=== PATIENT | female | born 1980 | race Two or more races ===

== ENCOUNTER → 2016-06-26 | Outpatient (CLI) | payer OTHER ==
[2014-12-24 13:19] VITALS: BP 114/62
[~2016-06-26] MED LIST: ALBU8.5H6
--- NOTE | 2016-06-26 10:11 | RAD ---
Exam performed: 2 views right knee. Clinical indication: Right knee pain, no known injury Date of Service: 06/26/16 Comparison:No priors Findings: AP and lateral radiographs of the knee reveal the osseous structures to be intact and well aligned. The joint space is well-preserved. The articular margins are smooth. Evidence of calcific loose body or joint effusion is absent. Impression: No acute abnormality seen in the right knee.
== END | disposition home or self-care (01) ==
LOC: RAD 09:33
PROVIDERS: ATTEND Family Medicine
DX: M25.561 Pain in right knee (principal)
CPT/HCPCS: 73560

== ENCOUNTER 2017-05-09 14:28 | Emergency (ER) | payer OTHER ==
[2017-05-09 15:13] LABS: INFLUENZA A PATIENT NEGATIVE (NEGATIVE); INFLUENZA B PATIENT NEGATIVE (NEGATIVE); OBC FLU VALID
[2017-05-09] MEDS: IPRATRPIUM/ALBUTEROL 0.5/2.5MG 3 ML NEBU. NEB (15:25)
[2017-05-09] MEDS: predniSONE 10 MG TABLET PO (15:50)
[2017-05-10 09:01] LABS: NEGATIVE OBC STREP NEG; POSITIVE OBC STREP POS
== END 2017-05-09 15:50 | disposition home or self-care (01) ==
LOC: ER 15:50
DX: J40 Bronchitis, not specified as acute or chronic (principal); J45.909 Unspecified asthma, uncomplicated; Z88.5 Allergy status to narcotic agent
CPT/HCPCS: 87804; 87804-59; 87880; 94640; 99284; J7512; J7620

== ENCOUNTER → 2017-07-14 | Outpatient (CLI) | payer OTHER ==
[2017-07-14] MEDS: SINCALIDE 2.1 MCG in IV NORMAL SALINE 50ML 30 ML IV (09:52)
== END | disposition home or self-care (01) ==
LOC: US 07:09
DX: R16.0 Hepatomegaly, not elsewhere classified (principal)
CPT/HCPCS: 76705; 78226; 96374; 96375; A9537; J2805

== ENCOUNTER → 2017-07-27 | Outpatient (CLI) | payer OTHER ==
[2017-07-27 14:43] LABS: ADD MAN DIFF? NO
[2017-07-27 14:45] LABS: BASO # 0.1 x10^3/uL (0.0-0.2); BASO % 1 % (0-3); EOS # 0.3 x10^3/uL (0.0-0.7); EOS % 4 % (0-3); HEMATOCRIT 39.5 % (36.0-47.0); HEMOGLOBIN 13.6 g/dL (12.0-15.5); LYMPH # 2.7 x10^3/uL (1.0-4.8); LYMPH % 35 % (24-48); MEAN CORPUSCULAR HEMOGLOBIN 28 pg (25-35); MEAN CORPUSCULAR HGB CONC 34 g/dL (31-37); MEAN CORPUSCULAR VOLUME 81 fL (79-100); MONO # 0.4 x10^3/uL (0.0-1.1); MONO % 5 % (0-9); NEUT # 4.3 x10^3uL (1.8-7.7); NEUT % 56 % (31-73); PLATELET COUNT 243 x10^3/uL (140-400); RED BLOOD COUNT 4.87 x10^6/uL (3.50-5.40); RED CELL DISTRIBUTION WIDTH 15.3 % (11.5-14.5); WHITE BLOOD COUNT 7.8 x10^3/uL (4.0-11.0)
[2017-07-27 15:13] LABS: ALBUMIN 3.4 g/dL (3.4-5.0); ANION GAP 6 (6-14); BLOOD UREA NITROGEN 17 mg/dL (7-20); CALCIUM 8.2 mg/dL (8.5-10.1); CARBON DIOXIDE 27 mmol/L (21-32); CHLORIDE 105 mmol/L (98-107); CREATININE 0.7 mg/dL (0.6-1.0); GFR 95.2; GLUCOSE 98 mg/dL (70-99); SODIUM 138 mmol/L (136-145); TOTAL BILIRUBIN 0.3 mg/dL (0.2-1.0)
== END | disposition home or self-care (01) ==
LOC: SURGPAT 13:41
DX: Z01.818 Encounter for other preprocedural examination (principal)
CPT/HCPCS: 36415; 80048; 82040; 82247; 85025

== ENCOUNTER 2017-08-02 06:43 | Day surgery (SDC) | payer OTHER ==
[2017-08-02] MEDS ORDERED: GLUCAGON,HUMAN RECOMBINANT 1 MG/ML VIAL. (06:51)
[2017-08-02] MEDS ORDERED: SURGICEL HEMOSTAT 4X8 EACH. (06:51)
[2017-08-02] MEDS ORDERED: LIDOCAINE 1% PF 2 ML VIAL. ID (07:00)
[2017-08-02] MEDS ORDERED: fentaNYL PF VIAL 100 MCG/2 ML VIAL IV (07:00)
[2017-08-02] MEDS ORDERED: ONDANSETRON PF 4 MG/2 ML VIAL. IV (07:00)
[2017-08-02 07:05] LABS: NEG OBC UR NEG; POS OBC UR POS; U PREG PATIENT NEGATIVE (NEG)
[2017-08-02] MEDS ORDERED: fentaNYL PF VIAL 250 MCG/5 ML VIAL (07:05)
[2017-08-02] MEDS ORDERED: ROCURONIUM 50 MG/5 ML VIAL. (07:05)
[2017-08-02] MEDS ORDERED: MIDAZOLAM HCL/PF 2 MG/2 ML VIAL. (07:05)
[2017-08-02] MEDS ORDERED: LIDOCAINE 1% PF 5 ML VIAL. (07:05)
[2017-08-02] MEDS ORDERED: PROPOFOL 20 ML IV (07:05)
[2017-08-02] MEDS: IV RINGERS,LACTATED 1000ML 1,000 ML IV ×2 (07:14→10:41)
[2017-08-02] MEDS ORDERED: ceFAZolin 2GM PREMIX 2 GM/50 ML BAG IV (08:00)
[2017-08-02] MEDS: BUPIVACAINE-EPI 0.25%-1:200000 50 ML VIAL. (08:29)
[2017-08-02] MEDS: IOHEXOL 300 MG/ML 100ML VIAL. (08:29)
[2017-08-02] MEDS ORDERED: SEVOFLURANE 61 TO 120 MINUTES. IH (08:50)
[2017-08-02] MEDS ORDERED: DEXAMETHASONE SOD PHOS 20 MG/5 ML VIAL. (08:50)
[2017-08-02] MEDS ORDERED: ONDANSETRON PF 4 MG/2 ML VIAL. (08:50)
[2017-08-02] MEDS ORDERED: NEOSTIGMINE METHYLSULFATE 5 MG/5 ML SYRINGE. (08:54)
[2017-08-02] MEDS ORDERED: GLYCOPYRROLATE 1 MG/5 ML VIAL. (08:54)
[2017-08-02] MEDS ORDERED: KETOROLAC 30 MG/ML INJ FOR OR. INJ (08:55)
[2017-08-02] MEDS: fentaNYL PF VIAL 100 MCG/2 ML VIAL IV ×4 (09:42→10:26)
[2017-08-02] MEDS ORDERED: MEPERIDINE PF 25 MG/ML VIAL. IV (09:45)
[2017-08-02] MEDS: diphenhydrAMINE 50 MG/ML VIAL IV (10:37)
[2017-08-02] MEDS: traMADol 50 MG TABLET PO (10:55)
[2017-08-02] MEDS: PROCHLORPERAZINE 10 MG/2 ML VIAL. IV (11:02)
== END 2017-08-02 12:12 | disposition home or self-care (01) ==
LOC: SURG 06:43
DX: K81.1 Chronic cholecystitis (principal); J45.30 Mild persistent asthma, uncomplicated; Z88.5 Allergy status to narcotic agent; E66.09 Other obesity due to excess calories; Z68.41 Body mass index [BMI] 40.0-44.9, adult; K21.9 Gastro-esophageal reflux disease without esophagitis; Z98.51 Tubal ligation status; Z87.442 Personal history of urinary calculi; M19.90 Unspecified osteoarthritis, unspecified site; Z79.899 Other long term (current) drug therapy; E78.5 Hyperlipidemia, unspecified; M51.36 Other intervertebral disc degeneration, lumbar region; Z98.890 Other specified postprocedural states; Z83.3 Family history of diabetes mellitus; Z87.891 Personal history of nicotine dependence; Z72.89 Other problems related to lifestyle
CPT/HCPCS: 47563; 74300; 81025; 88304; A7015; J0690; J0780; J1100; J1200; J1610; J1885; J2250; J2405; J2704; J2710; J3010; J3490; J7030; J7120; Q9967

== ENCOUNTER 2018-01-29 20:18 | Emergency (ER) | payer OTHER ==
[~2018-01-29] VITALS: Ht 154.9 cm; Wt 108.4 kg
[~2018-01-29 20:18] MED LIST changes: +AZIT250T PO; +IBUP-1060 PO; +OMEP20CA9 PO; +OMEP40CA5 PO; +PRED50TA PO; +PROAIR HFA8.5 GM INH; +SULF1TAB24 PO; +TRAM50TA PO
[2018-01-29 20:26] VITALS: BP 124/68
[2018-01-29] MEDS ORDERED: IPRATRPIUM/ALBUTEROL 0.5/2.5MG 3 ML NEBU. NEB ONE (20:45)
--- NOTE | 2018-01-29 20:53 | RAD ---
Chest radiograph 01/29/2018 8:36 PM INDICATION: Productive cough and sore throat COMPARISON: None available TECHNIQUE: Frontal and lateral views of the chest are provided. FINDINGS: The cardiomediastinal silhouette is within normal limits. There are no pleural effusions. There is no pulmonary vascular congestion. There is no pneumothorax. The lungs are clear. No significant osseous abnormality is identified. IMPRESSION: No acute cardiopulmonary process. Electronically signed by: Rocio Santiago MD (01/29/2018 8:49 PM) [facility]
[2018-01-29] MEDS ORDERED: BENZ100C PO (21:11)
[2018-01-29] MEDS ORDERED: METH4TAB2 PO (21:11)
[2018-01-29] MEDS ORDERED: AMOX1TAB61 PO (21:11)
--- NOTE | 2018-01-29 21:12 | PHYS DOC ---
Past Medical History Past Medical History: Asthma, Other Additional Past Medical Histor: HEMMORHOIDS Past Surgical History: No Surgical History, Alcohol Use: None Drug Use: None Adult General Chief Complaint Chief Complaint: SORE THROAT HPI HPI Patient is a 37 year old F who presents with cough, congestion, sore throat, R ear pain and hoarse voice for 3 days. She does have a history of asthma and uses inhalers at home. LMP was 01/03/18 and she has the Essure device. Review of Systems Review of Systems Constitutional: Reports chills Eyes: Denies change in visual acuity, redness, or eye pain HENT: Reports nasal discharge and sore throat. Reports hoarse voice Respiratory: Reports cough and wheezing Cardiovascular: Denies chest pain GI: Denies abdominal pain, nausea, vomiting, bloody stools or diarrhea : Denies dysuria or hematuria Musculoskeletal: Denies back pain or joint pain Integument: Denies rash or skin lesions Neurologic: Denies headache, focal weakness or sensory changes All other systems were reviewed and found to be within normal limits, except as documented in this note. Current Medications Current Medications Current Medications Medications (Trade) Dose Ordered Sig/Radha Start Time Stop Time Status Last Admin Dose Admin Albuterol/ Ipratropium (Duoneb) 3 ml 1X ONCE 01/29/18 20:45 01/29/18 20:46 DC 01/29/18 20:58 3 ML Allergies Allergies Allergies Coded Allergies Type Severity Reaction Last Updated Verified morphine Allergy Intermediate Hives 08/02/17 Yes Physical Exam Physical Exam Constitutional: Well developed, well nourished, no acute distress, non-toxic appearance. HENT: Normocephalic, atraumatic, R tempanic membrane erythema, oropharynx erythema Eyes: PERRLA, EOMI, conjunctiva normal, no discharge. Neck: Normal range of motion, no tenderness, supple, no stridor. Cardiovascular:Heart rate regular rhythm, no murmur Lungs & Thorax: Bilateral wheezing, mild, scattered Abdomen: Bowel sounds normal, soft, no tenderness, no masses, no pulsatile masses. Skin: Warm, dry, no erythema, no rash. Back: No tenderness, no CVA tenderness. Extremities: No tenderness, no cyanosis, no clubbing, ROM intact, no edema. Neurologic: Alert and oriented X 3, normal motor function, normal sensory function, no focal deficits noted. Psychologic: Affect normal, judgement normal, mood normal. Current Patient Data Vital Signs Vital Signs Date Time Temp Pulse Resp B/P (MAP) Pulse Ox O2 Delivery O2 Flow Rate FiO2 01/29/18 20:59 98 Room Air 01/29/18 20:26 98.4 76 22 124/68 (86) 98.4 EKG EKG [] Radiology/Procedures Radiology/Procedures PROCEDURE: CHEST PA & LATERAL Chest radiograph 01/29/2018 8:36 PM INDICATION: Productive cough and sore throat COMPARISON: None available TECHNIQUE: Frontal and lateral views of the chest are provided. FINDINGS: The cardiomediastinal silhouette is within normal limits. There are no pleural effusions. There is no pulmonary vascular congestion. There is no pneumothorax. The lungs are clear. No significant osseous abnormality is identified. IMPRESSION: No acute cardiopulmonary process. Electronically signed by: Rocio Santiago MD (01/29/2018 8:49 PM) [facility] Course & Med Decision Making Course & Med Decision Making Pertinent Labs and Imaging studies reviewed. (See chart for details) CXR negative, rapid strep negative Discussed rest, fluids and will cover with abx for ear infection. Medrol dose rivera and Tessalon Perrles for cough and wheezing. Pt to f/u with PCP and return if symptoms worsen at anytime. Dragon Disclaimer Dragon Disclaimer This electronic medical record was generated, in whole or in part, using a voice recognition dictation system. Departure Departure Impression: Primary Impression: Otitis media Additional Impressions: Pharyngitis Bronchitis Disposition: 01 HOME, SELF-CARE Condition: STABLE Referrals: JOSH SNEED MD (PCP) Patient Instructions: Acute Bronchitis, [id number], Otitis Media, Adult, Viral and Bacterial Pharyngitis, [id number] Scripts Benzonatate (TESSALON PERLE) 100 Mg Capsule 100 MG PO TID PRN for COUGH for 5 Days, #15 CAP Prov: HECTOR GUEVARA 01/29/18 Methylprednisolone (MEDROL) 4 Mg Tab.ds.pk 1 PKG PO UD, #1 PKG Prov: HECTOR GUEVARA 01/29/18 Amoxicillin/Potassium Clav (AUGMENTIN 875-125 TABLET) 1 Each Tablet 1 TAB PO BID, #20 TAB Prov: HECTOR GUEVARA 01/29/18 Attending Signature Attending Signature I have reviewed the PA/LAUNDERETTE ATTENDANT's note and plan of care. I was available for consultation as needed during the patient's visit in the emergency department. I agree with the clinical impression, plan, and disposition. Problem Qualifiers HECTOR GUEVARA Jan 29, 2018 21:12 KELSEY ALEJO DO Jan 29, 2018 23:48
== END 2018-01-29 21:19 | disposition home or self-care (01) ==
LOC: ER 20:18
DX: J40 Bronchitis, not specified as acute or chronic (principal); J02.9 Acute pharyngitis, unspecified; H66.91 Otitis media, unspecified, right ear; J45.909 Unspecified asthma, uncomplicated; Z88.5 Allergy status to narcotic agent
CPT/HCPCS: 71046; 87070; 87880; 94640; 99284; J7620

== ENCOUNTER 2018-04-03 01:44 | Emergency (ER) | payer SELFPAY ==
[~2018-04-03] VITALS: Ht 154.9 cm; Wt 107.5 kg
[~2018-04-03 01:44] MED LIST changes: +ALBU2.5V8 INH; +AMOX1TAB61 PO; +BENZ100C PO; +METH4TAB2 PO; -PROAIR HFA8.5 GM INH
[2018-04-03] MEDS ORDERED: ONDANSETRON ODT 4 MG TAB.RAPDIS. PO ONE (03:30)
[2018-04-03] MEDS ORDERED: oxyCODONE/APAP 10/325 1 TAB TABLET PO ONE (03:30)
--- NOTE | 2018-04-03 03:53 | RAD ---
INDICATION: abdominal pain, CONSTIPATION COMPARISON: Chest x-ray January 2018 IMPRESSION: Abdomen: 4 views of chest and abdomen obtained. No focal airspace consolidation to suggest pneumonia. Cardiac silhouette similar to prior. Essure device seen bilateral pelvis. Surgical clips right upper quadrant of abdomen. Air scattered throughout large and small bowel in a nonspecific but not grossly obstructive pattern. Electronically signed by: Nitish Henriquez MD (04/03/2018 3:50 AM) [facility]
[2018-04-03 04:08] VITALS: BP 107/54
--- NOTE | 2018-04-03 05:53 | PHYS DOC ---
Past Medical History Past Medical History: Asthma, GERD, Other Additional Past Medical Histor: h pyloric, back pain. migraines. Past Surgical History: Cholecystectomy Alcohol Use: None Drug Use: None Adult General Chief Complaint Chief Complaint: CONSTIPATION HPI HPI Patient is a 37 year old suspect female with history of constipation preference with diffuse abdominal cramping, last bowel movement was several hours prior to ED arrival. No vomiting diarrhea. No urinary frequency urgency or burning. Blood in stool, hematuria, flank pain or history of kidney stones. Currently on menstraul period. [] Review of Systems Review of Systems ROS as per HPI All other systems were reviewed and found to be within normal limits, except as documented in this note. Current Medications Current Medications Current Medications Medications (Trade) Dose Ordered Sig/Radha Start Time Stop Time Status Last Admin Dose Admin Ondansetron HCl (Zofran Odt) 4 mg 1X ONCE 04/03/18 03:30 04/03/18 03:31 DC 04/03/18 03:05 4 MG Oxycodone/ Acetaminophen (Percocet 10/325) 1 tab 1X ONCE 04/03/18 03:30 04/03/18 03:31 DC 04/03/18 03:06 1 TAB Allergies Allergies Allergies Coded Allergies Type Severity Reaction Last Updated Verified morphine Allergy Intermediate Hives 08/02/17 Yes Physical Exam Physical Exam Constitutional: Well developed, well nourished, no acute distress, non-toxic appearance. [] HENT: Normocephalic, atraumatic, bilateral external ears normal, oropharynx moist, no oral exudates, nose normal. [] Eyes: PERRLA, EOMI, conjunctiva normal, no discharge. [] Neck: Normal range of motion. [] Cardiovascular:Heart rate regular rhythm, no murmur [] Lungs & Thorax: Bilateral breath sounds clear to auscultation [] Abdomen: Bowel sounds normal, soft, no tenderness. [] Skin: Warm, dry, no erythema, no rash. [] Back: No tenderness. [] Extremities: No tenderness. [] Neurologic: Alert and oriented X 3, normal motor function, normal sensory function, no focal deficits noted. [] Psychologic: Affect normal, judgement normal, mood normal. [] Current Patient Data Vital Signs Vital Signs Date Time Temp Pulse Resp B/P (MAP) Pulse Ox O2 Delivery O2 Flow Rate FiO2 04/03/18 04:08 74 16 107/54 (71) 04/03/18 03:06 Room Air 04/03/18 02:14 98.3 98.3 Lab Values Laboratory Tests Test 04/03/18 02:56 POC Urine HCG, Qualitative Hcg negative (Negative) EKG EKG [] Radiology/Procedures Radiology/Procedures [Acute abdominal series: No evidence of bowel obstruction per radiology report] Course & Med Decision Making Course & Med Decision Making Pertinent Labs and Imaging studies reviewed. (See chart for details) [Pain free with tx. Will tx supportively.] Dragon Disclaimer Dragon Disclaimer This electronic medical record was generated, in whole or in part, using a voice recognition dictation system. Departure Departure Impression: Primary Impression: Constipation Additional Impression: Abdominal pain Disposition: 01 HOME, SELF-CARE Condition: GOOD Patient Instructions: Abdominal Pain, Constipation, Adult, [id number] Additional Instructions: You were evaluated emergency department for abdominal pain. X-ray was performed and is consistent with constipation. Use a fleets enema and drink 1-2 bottles of Magnesium Citrate every 12 hours for 2 days, increase fluids and fiber intake. Follow-up with your PCP in the next 1-2 days for reevaluation. Problem Qualifiers TIEN GIBSON DO Apr 03, 2018 05:53
== END 2018-04-03 04:22 | disposition home or self-care (01) ==
LOC: ER 01:44
DX: K59.00 Constipation, unspecified (principal); K92.1 Melena; R31.9 Hematuria, unspecified; K21.9 Gastro-esophageal reflux disease without esophagitis; J45.909 Unspecified asthma, uncomplicated; G43.909 Migraine, unspecified, not intractable, without status migrainosus; Z88.5 Allergy status to narcotic agent; Z90.49 Acquired absence of other specified parts of digestive tract
CPT/HCPCS: 74022; 81025; 99283; Q0162

== ENCOUNTER 2018-10-10 23:27 | Emergency (ER) | payer OTHER ==
[~2018-10-10] VITALS: Ht 154.9 cm; Wt 84.8 kg
[~2018-10-10 23:27] MED LIST changes: +OMEP20CA10 PO; -OMEP20CA9 PO
[2018-10-10 23:30] VITALS: BP 150/81
[2018-10-10] MEDS ORDERED: FLUT9.9S NS (23:52)
[2018-10-10] MEDS ORDERED: PRED20TA PO (23:52)
[2018-10-10] MEDS ORDERED: LORA1TAB47 PO (23:52)
--- NOTE | 2018-10-10 23:52 | PHYS DOC ---
Past Medical History Past Medical History: Asthma, GERD, Other Additional Past Medical Histor: h pyloric, back pain. migraines. Past Surgical History: Cholecystectomy Alcohol Use: None Drug Use: None Adult General Chief Complaint Chief Complaint: Congestion HPI HPI Patient is a 38-year-old female who presents with nasal congestion, runny nose and a dry cough. She's been using her inhaler without significant relief. She denies any fever chills or sweats. She denies any nausea or vomiting. She does have a scratchy throat. She's been eating and drinking normally. She has not taken any antihistamines or nasal spray.[] Review of Systems Review of Systems Constitutional: Denies fever or chills [] Eyes: Denies change in visual acuity, redness, or eye pain [] HENT: Reports nasal congestion and a scratchy throat[] Respiratory: Reports a dry cough[] Cardiovascular: No additional information not addressed in HPI [] GI: Denies abdominal pain, nausea, vomiting, bloody stools or diarrhea [] : Denies dysuria or hematuria [] Musculoskeletal: Denies back pain or joint pain [] Integument: Denies rash or skin lesions [] Neurologic: Denies headache, focal weakness or sensory changes [] Endocrine: Denies polyuria or polydipsia [] All other systems were reviewed and found to be within normal limits, except as documented in this note. Current Medications Current Medications Current Medications Medications (Trade) Dose Ordered Sig/Radha Start Time Stop Time Status Last Admin Dose Admin Prednisone (Prednisone) 60 mg 1X ONCE 10/10/18 23:45 10/10/18 23:46 UNV Allergies Allergies Allergies Coded Allergies Type Severity Reaction Last Updated Verified morphine Allergy Intermediate Hives 08/02/17 Yes Physical Exam Physical Exam Constitutional: Well developed, well nourished, no acute distress, non-toxic appearance. [] HENT: Normocephalic, atraumatic, bilateral external ears normal, oropharynx moist, no oral exudates, swollen nasal turbinates with clear rhinorrhea. [] Eyes: PERRLA, EOMI, conjunctiva normal, no discharge. [] Neck: Normal range of motion, no tenderness, supple, no stridor. [] Cardiovascular:Heart rate regular rhythm, no murmur [] Lungs & Thorax: Bilateral breath sounds clear to auscultation [] Abdomen: Bowel sounds normal, soft, no tenderness, no masses, no pulsatile masses. [] Skin: Warm, dry, no erythema, no rash. [] Back: No tenderness, no CVA tenderness. [] Extremities: No tenderness, no cyanosis, no clubbing, ROM intact, no edema. [] Neurologic: Alert and oriented X 3, normal motor function, normal sensory function, no focal deficits noted. [] Psychologic: Affect normal, judgement normal, mood normal. [] EKG EKG [] Radiology/Procedures Radiology/Procedures [] Course & Med Decision Making Course & Med Decision Making Pertinent Labs and Imaging studies reviewed. (See chart for details) [] Dragon Disclaimer Dragon Disclaimer This electronic medical record was generated, in whole or in part, using a voice recognition dictation system. Departure Departure Impression: Primary Impression: Viral upper respiratory infection Disposition: HOME, SELF-CARE Condition: STABLE Referrals: JOSH SNEED MD (PCP) Patient Instructions: Allergic Rhinitis, Viral Infections, Viral Syndrome Additional Instructions: Use Flonase and Claritin-D as discussed. I have prescribed U prednisone to take as well. Return to the emergency department with any new or concerning symptoms Scripts Prednisone (PREDNISONE) 20 Mg Tablet 3 TAB PO DAILY PRN for COUGH for 5 Days, #15 TAB Prov: MILAGROS BLANCA DO 10/10/18 Loratadine/Pseudoephedrine (CLARITIN-D 12 HOUR TABLET) 1 Each Tab.er.12h 1 TAB PO BID, #90 TAB Prov: MILAGROS BLANCA DO 10/10/18 Fluticasone Propionate (Flonase Allergy Relief) 9.9 Ml [place].susp 2 SPRAYS NS DAILY, #1 BOTTLE Prov: MILAGROS BLANCA DO 10/10/18 MILAGROS BLANCA DO Oct 10, 2018 23:52
[2018-10-11] MEDS ORDERED: predniSONE 20 MG TABLET PO ONE
== END 2018-10-11 00:04 | disposition home or self-care (01) ==
LOC: ER 23:27
DX: J06.9 Acute upper respiratory infection, unspecified (principal); K21.9 Gastro-esophageal reflux disease without esophagitis; J45.909 Unspecified asthma, uncomplicated; G43.909 Migraine, unspecified, not intractable, without status migrainosus; Z90.49 Acquired absence of other specified parts of digestive tract; Z88.5 Allergy status to narcotic agent
CPT/HCPCS: 99283; J7512

== ENCOUNTER 2019-08-26 15:55 | Emergency (ER) | payer OTHER ==
[~2019-08-26] VITALS: Ht 154.9 cm; Wt 100.0 kg
[~2019-08-26 15:55] MED LIST changes: +FLUT9.9S NS; +LORA1TAB47 PO; -OMEP20CA10 PO; +OMEP20CA16 PO; +OMEP40CA45 PO; -OMEP40CA5 PO; +PRED20TA PO
[2019-08-26 17:15] VITALS: BP 128/60
[2019-08-26 17:41] LABS: BASO # 0.1 x10^3/uL (0.0-0.2); BASO % 1 % (0-3); BILIRUBIN,URINE SMALL (NEG); CLARITY,URINE CLEAR; COLOR,URINE AMBER; EOS # 0.3 x10^3/uL (0.0-0.7); EOS % 3 % (0-3); HEMATOCRIT 38.4 % (36.0-47.0); LYMPH % 22 % (24-48); MEAN CORPUSCULAR HEMOGLOBIN 26 pg (25-35); MEAN CORPUSCULAR HGB CONC 34 g/dL (31-37); MEAN CORPUSCULAR VOLUME 75 fL (79-100); MONO # 0.3 x10^3/uL (0.0-1.1); MONO % 4 % (0-9); NEUT # 6.7 x10^3/uL (1.8-7.7); NEUT % 71 % (31-73); NITRITE,URINE NEGATIVE (NEG); PLATELET COUNT 317 x10^3/uL (140-400); PROTEIN,URINE NEGATIVE (NEG-TRACE); RED BLOOD COUNT 5.11 x10^6/uL (3.50-5.40); RED CELL DISTRIBUTION WIDTH 17.7 % (11.5-14.5); UROBILINOGEN,URINE 0.2 mg/dL (0.2 mg/dL); WHITE BLOOD COUNT 9.4 x10^3/uL (4.0-11.0)
[2019-08-26 17:47] LABS: CALCIUM 8.6 mg/dL (8.5-10.1); CREATININE 0.9 mg/dL (0.6-1.0); GFR 70.5; POTASSIUM 3.5 mmol/L (3.5-5.1); SQUAMOUS EPITHELIAL CELL,UR MANY /LPF
[2019-08-26 17:48] LABS: BACTERIA,URINE MODERATE /HPF (0-FEW)
[2019-08-26 17:50] LABS: RBC,URINE RARE /HPF (0-2)
[2019-08-26] MEDS ORDERED: ONDANSETRON PF 4 MG/2 ML VIAL. IVP ONE (18:00)
[2019-08-26] MEDS ORDERED: LIDO:MAALOX 1:1 20 ML SINGLE DOSE. SWSW ONE (18:00)
[2019-08-26] MEDS ORDERED: KETOROLAC 30 MG/ML VIAL. IVP ONE (18:00)
[2019-08-26 18:01] LABS: ALBUMIN 3.6 g/dL (3.4-5.0); ALBUMIN/GLOBULIN RATIO 0.8 (1.0-1.7); TOTAL BILIRUBIN 0.2 mg/dL (0.2-1.0); TOTAL PROTEIN 7.9 g/dL (6.4-8.2)
--- NOTE | 2019-08-26 19:55 | PHYS DOC ---
Past Medical History Past Medical History: Asthma, GERD, Other Additional Past Medical Histor: h pyloric, back pain. migraines. (KELSEY LOMELI APRN) Past Surgical History: Cholecystectomy, Tonsillectomy (KELSEY LOMELI APRN) Smoking Status: Never Smoker Alcohol Use: None Drug Use: None (KELSEY LOMELI APRN) General Adult EDM: Chief Complaint: ABDOMINAL PAIN HPI: HPI: Patient is a 39 year old female who presents with generalized abdominal pain for the past week. Patient states she has a history of H. pylori infection and has been treated in the past with omeprazole but no longer takes omeprazole at this time. Patient currently complains of generalized abdominal pain with nausea, denies vomiting, diarrhea, bloody stool, or constipation. Patient states pain is worse after eating spicy foods, however pain can be relieved with taking [id number] Maalox. Patient currently denies fever or chills, any vision changes, nasal congestion or sore throat. Patient denies cough or shortness of breath, chest pain or swelling of her extremities. Patient denies any dysuria, vaginal discharge, or STI concerns. Patient denies back pain, and joint pain, rash. Patient denies any current headaches, weaknesses, or sensory changes. Patient denies any increased urination or increased thirst. Patient denies any swollen glands. Patient denies any recent depressions or anxieties or recent life changes. Patient denies anyone else in her home with the same symptoms. (KELSEY LOMELI APRN) Review of Systems: Review of Systems: Constitutional: Denies fever or chills. Eyes: Denies change in visual acuity. HENT: Denies nasal congestion or sore throat. Respiratory: Denies cough or shortness of breath. Cardiovascular: Denies chest pain or edema. GI: Complains of generalized abdominal pain, denies nausea, vomiting, bloody stools or diarrhea. : Denies dysuria. Denies vaginal discharge, or STI concerns Musculoskeletal: Denies back pain or joint pain. Integument: Denies rash. Neurologic: Denies headache, focal weakness or sensory changes. Endocrine: Denies polyuria or polydipsia. Lymphatic: Denies swollen glands. Psychiatric: Denies depression or anxiety. (KELSEY LOMELI APRN) Heart Score: Risk Factors: Risk Factors: DM, Current or recent (<one month) smoker, HTN, HLP, family history of CAD, obesity. Risk Scores: Score 0 - 3: 2.5% MACE over next 6 weeks - Discharge Home Score 4 - 6: 20.3% MACE over next 6 weeks - Admit for Clinical Observation Score 7 - 10: 72.7% MACE over next 6 weeks - Early Invasive Strategies (KELSEY LOMELI APRN) Family History: Family History: Denies any family history associated with this visit. (KELSEY LOMELI APRN) Current Medications: Current Medications Medications (Trade) Dose Ordered Sig/Radha Start Time Stop Time Status Last Admin Dose Admin Ketorolac Tromethamine (Toradol 30mg Vial) 30 mg 1X ONCE 08/26/19 18:00 08/26/19 18:01 DC 08/26/19 18:57 30 MG Multi-Ingredient Mouthwash/Gargle (Gi Cocktail) 20 ml 1X ONCE 08/26/19 18:00 08/26/19 18:01 DC 08/26/19 18:57 20 ML Ondansetron HCl (Zofran) 4 mg 1X ONCE 08/26/19 18:00 08/26/19 18:01 DC 08/26/19 18:57 4 MG (KELSEY LOMELI APRN) Allergies: Allergies: Patient reports an allergy to morphine, states it gives her hives. Allergies Coded Allergies Type Severity Reaction Last Updated Verified morphine Allergy Intermediate Hives 08/02/17 Yes (KELSEY LOMELI APRN) Physical Exam: PE: Constitutional: Well developed, well nourished, no acute distress, non-toxic appearance. HENT: Normocephalic, atraumatic, bilateral external ears normal, oropharynx moist, no oral exudates, nose normal. Eyes: PERRLA, EOMI, conjunctiva normal, no discharge. Pupils 4 mm. Neck: Normal range of motion, no tenderness, supple, no stridor. Cardiovascular:Heart rate regular rhythm, no murmur heart sounds S1-S2, no abnormal sounds per auscultation. Lungs & Thorax: Bilateral breath sounds clear to auscultation all lung field Abdomen: Diffuse abdominal pain to all 4 quadrants per palpation, negative psoas sign, no rebound tenderness, negative McBurney's point pain, bowel sounds normal, soft, no masses, no pulsatile masses. Skin: Warm, dry, no erythema, no rash. Back: No tenderness, no CVA tenderness. Extremities: No tenderness, no cyanosis, no clubbing, ROM intact, no edema. Neurologic: Alert and oriented X 3, normal motor function, normal sensory function, no focal deficits noted. Psychologic: Affect normal, judgement normal, mood normal. (KELSEY LOMELI APRN) Current Patient Data: Labs: Laboratory Tests Test 08/26/19 17:04 08/26/19 17:11 White Blood Count 9.4 x10^3/uL (4.0-11.0) Red Blood Count 5.11 x10^6/uL (3.50-5.40) Hemoglobin 13.0 g/dL (12.0-15.5) Hematocrit 38.4 % (36.0-47.0) Mean Corpuscular Volume 75 fL (79-100) L Mean Corpuscular Hemoglobin 26 pg (25-35) Mean Corpuscular Hemoglobin Concent 34 g/dL (31-37) Red Cell Distribution Width 17.7 % (11.5-14.5) H Platelet Count 317 x10^3/uL (140-400) Neutrophils (%) (Auto) 71 % (31-73) Lymphocytes (%) (Auto) 22 % (24-48) L Monocytes (%) (Auto) 4 % (0-9) Eosinophils (%) (Auto) 3 % (0-3) Basophils (%) (Auto) 1 % (0-3) Neutrophils # (Auto) 6.7 x10^3/uL (1.8-7.7) Lymphocytes # (Auto) 2.0 x10^3/uL (1.0-4.8) Monocytes # (Auto) 0.3 x10^3/uL (0.0-1.1) Eosinophils # (Auto) 0.3 x10^3/uL (0.0-0.7) Basophils # (Auto) 0.1 x10^3/uL (0.0-0.2) Urine Collection Type Unknown Urine Color Molly Urine Clarity Clear Urine pH 6.0 (<5.0-8.0) Urine Specific [place] >=1.030 (1.000-1.030) Urine Protein Negative mg/dL (NEG-TRACE) Urine Glucose (UA) Negative mg/dL (NEG) Urine Ketones (Stick) Trace mg/dL (NEG) Urine Blood Negative (NEG) Urine Nitrite Negative (NEG) Urine Bilirubin Small (NEG) Urine Urobilinogen Dipstick 0.2 mg/dL (0.2 mg/dL) Urine Leukocyte Esterase Small (NEG) Urine RBC Rare /HPF (0-2) Urine WBC 1-4 /HPF (0-4) Urine Squamous Epithelial Cells Many /LPF Urine Bacteria Moderate /HPF (0-FEW) Urine Mucus Marked /LPF Sodium Level 141 mmol/L (136-145) Potassium Level 3.5 mmol/L (3.5-5.1) Chloride Level 105 mmol/L (98-107) Carbon Dioxide Level 26 mmol/L (21-32) Anion Gap 10 (6-14) Blood Urea Nitrogen 15 mg/dL (7-20) Creatinine 0.9 mg/dL (0.6-1.0) Estimated GFR (Cockcroft-Gault) 70.5 BUN/Creatinine Ratio 17 (6-20) Glucose Level 110 mg/dL (70-99) H Calcium Level 8.6 mg/dL (8.5-10.1) Total Bilirubin 0.2 mg/dL (0.2-1.0) Aspartate Amino Transferase (AST) 18 U/L (15-37) Alanine Aminotransferase (ALT) 30 U/L (14-59) Alkaline Phosphatase 141 U/L (46-116) H Total Protein 7.9 g/dL (6.4-8.2) Albumin 3.6 g/dL (3.4-5.0) Albumin/Globulin Ratio 0.8 (1.0-1.7) L Lipase 179 U/L (73-393) POC Urine HCG, Qualitative Hcg negative (Negative) Laboratory Tests 08/26/19 17:04 Laboratory Tests 08/26/19 17:04 Vital Signs: Vital Signs Date Time Temp Pulse Resp B/P (MAP) Pulse Ox O2 Delivery O2 Flow Rate FiO2 08/26/19 17:15 98.2 70 18 128/60 (82) 98 Room Air 98.2 (KELSEY LOMELI APRN) EKG: EKG: [] (KELSEY LOMELI APRN) Radiology/Procedures: Radiology/Procedures: [] (KELSEY LOMELI APRN) Course & Med Decision Making: Course & Med Decision Making Pertinent Labs and Imaging studies reviewed. (See chart for details) 39-year-old female patient presents to the emergency department with generalized diffuse abdominal pain over the past week. Patient denies vomiting diarrhea or bloody stools. Patient does however complain of nausea that increases after eating. Patient rated her pain at a 4/10. Patient reports having a history of H. pylori infection and is concerned that she may have this again. Vital signs were reviewed and labs were ordered. Urine concerning for urinary tract infection. Patient's nausea was relieved with IV Zofran. Patient's abdominal pain was relieved with IV Toradol. Patient was given a GI cocktail and reports no longer feeling any indigestion or abdominal discomfort. Presentation and examination was non-concerning for infectious bowel process. Discussed with patient need to follow-up with her GI specialist if symptoms return or are ongoing. Discussed with patient urine results concerning for urinary tract infection. Plan to discharge home with prescription for antibiotics to treat urinary tract infection, patient was amenable to this discharge plan, has no further concerns or questions. Discussed with patient need to follow-up with primary MD for further concerns, discussed with patient return to ER precautions and concerns. (KELSEY LOMELI APRN) Dragon Disclaimer: Dragon Disclaimer: This electronic medical record was generated, in whole or in part, using a voice recognition dictation system. (KELSEY LOMELI APRN) Departure Departure Impression: Primary Impression: Urinary tract infection Qualified Codes: N30.00 - Acute cystitis without hematuria Additional Impression: Abdominal pain Qualified Codes: R10.84 - Generalized abdominal pain Disposition: HOME, SELF-CARE Condition: GOOD Referrals: KELSEY KIM MD (PCP) Patient Instructions: Urinary Tract Infection Additional Instructions: Take medications as prescribed. Follow-up with your doctor soon. Return to the emergency department for any further concerns. Scripts Cephalexin (KEFLEX) 500 Mg Capsule 500 MG PO BID for 5 Days, #10 CAP 0 Refills Prov: KELSEY LOMELI APRN 08/26/19 Omeprazole (OMEPRAZOLE) 40 Mg Capsule.dr 40 MG PO DAILY, #30 CAP 0 Refills Prov: KELSEY LOMELI APRN 08/26/19 Justicifation of Admission Dx: Justifications for Admission: Justification of Admission Dx: N/A (KELSEY LOMELI APRN) Attending Signature Attending Signature I have reviewed the PA/BUSINESS PRACTICES OFFICER's note and plan of care. I was available for consultation as needed during the patient's visit in the emergency department. I agree with the clinical impression, plan, and disposition. (KELSEY ALEJO DO) KELSEY LOMELI APRN Aug 26, 2019 19:55 KELSEY ALEJO DO Aug 28, 2019 06:30
[2019-08-26] MEDS ORDERED: OMEP40CA45 PO (20:02)
[2019-08-26] MEDS ORDERED: CEPH-264 PO (20:02)
== END 2019-08-26 20:24 | disposition home or self-care (01) ==
LOC: ER 15:55
DX: N30.00 Acute cystitis without hematuria (principal); R10.84 Generalized abdominal pain; J45.909 Unspecified asthma, uncomplicated; K21.9 Gastro-esophageal reflux disease without esophagitis; Z90.49 Acquired absence of other specified parts of digestive tract; Z90.89 Acquired absence of other organs; Z88.6 Allergy status to analgesic agent; Z79.899 Other long term (current) drug therapy
CPT/HCPCS: 36415; 80053; 81001; 81025; 83690; 85025; 87086; 96374; 96375; 99284; J1885; J2405

== ENCOUNTER 2020-07-01 14:50 | Emergency (ER) | payer OTHER ==
[~2020-07-01] VITALS: Ht 154.9 cm; Wt 102.7 kg
[~2020-07-01 14:50] MED LIST changes: +CEPH-264 PO
[2020-07-01 15:27] LABS: BILIRUBIN,URINE NEGATIVE (NEG); CLARITY,URINE CLEAR; COLOR,URINE YELLOW; NITRITE,URINE NEGATIVE (NEG); PH,URINE 5.5 (<5.0-8.0); PROTEIN,URINE NEGATIVE (NEG-TRACE); UROBILINOGEN,URINE 0.2 mg/dL (0.2 mg/dL)
[2020-07-01 15:39] LABS: BACTERIA,URINE FEW /HPF (0-FEW)
[2020-07-01 15:40] LABS: AMORPHOUS SEDIMENT,UR PRESENT /HPF; RBC,URINE 0 /HPF (0-2); WBC,URINE 0 /HPF (0-4)
[2020-07-01 16:00] VITALS: BP 111/59
--- NOTE | 2020-07-01 16:47 | RAD ---
EXAM: Abdomen and pelvis CT with intravenous contrast. HISTORY: Flank pain. TECHNIQUE: Computed tomographic images of the abdomen and pelvis were obtained following the administ ration of intravenous contrast. Multiplanar reformatting was performed. *One or more of the following individualized dose reduction techniques were utilized for this examina tion: 1. Automated exposure control. 2. Adjustment of the mA and/or kV according to patient size. 3. Use of iterative reconstruction technique. COMPARISON: None. FINDINGS: Evaluation of the lower thorax demonstrates mild lower lobe predominant air trapping. There is no pleural effusion or pneumothorax. There is no suspicious hepatic lesion. The gallbladder, panc reas, spleen and adrenal glands are unremarkable. The kidneys are unremarkable. There is no hydroneph rosis. The bladder is nearly empty. There is no appendicitis. There is no bowel obstruction. There ar e fallopian tube closure devices in expected position. The aorta is normal in caliber. There is no ly mphadenopathy. There is grade 1 anterolisthesis with bilateral pars interarticularis defects at L5-S1 . IMPRESSION: 1. No acute abdominal or pelvic finding. 2. Grade 1 anterolisthesis with pars defects at L5-S1. Electronically signed by: Cristina Lang MD (07/01/2020 4:45 PM) [id number]
[2020-07-01] MEDS ORDERED: CYCL10TA2 PO (17:45)
[2020-07-01] MEDS ORDERED: NAPR-514 PO (17:45)
--- NOTE | 2020-07-01 17:45 | PHYS DOC ---
Past Medical History Past Medical History: Asthma, GERD, Other Additional Past Medical Histor: h pyloric, back pain. migraines. Past Surgical History: Cholecystectomy, Tonsillectomy Smoking Status: Current Every Day Smoker Alcohol Use: None Drug Use: None General Adult EDM: Chief Complaint: FLANK PAIN HPI: HPI: Patient is a 39 year old female who presents with 8 out of 10 left low back pain/flank pain, symptoms began 2 days ago. Patient denies any injuries. States symptoms are worse on activity. She states she believes this is a kidney stone. She states she had similar symptoms with kidney stones. Describes the pain as throbbing and sometimes sharp. Denies any pain radiating to bilateral lower extremities, denies any loss of bowel/bladder function. Denies any known injury. Review of Systems: Review of Systems: Constitutional: Denies fever or chills. [] Eyes: Denies change in visual acuity. [] HENT: Denies nasal congestion or sore throat. [] Respiratory: Denies cough or shortness of breath. [] Cardiovascular: Denies chest pain or edema. [] GI: Denies abdominal pain, nausea, vomiting, bloody stools or diarrhea. [] : Denies dysuria. [] Musculoskeletal: Reports left low back pain/flank pain Integument: Denies rash. [] Neurologic: Denies headache, focal weakness or sensory changes. [] Psychiatric: Denies depression or anxiety. [] Heart Score: C/O Chest Pain: N/A Risk Factors: Risk Factors: DM, Current or recent (<one month) smoker, HTN, HLP, family history of CAD, obesity. Risk Scores: Score 0 - 3: 2.5% MACE over next 6 weeks - Discharge Home Score 4 - 6: 20.3% MACE over next 6 weeks - Admit for Clinical Observation Score 7 - 10: 72.7% MACE over next 6 weeks - Early Invasive Strategies Allergies: Allergies: Allergies Coded Allergies Type Severity Reaction Last Updated Verified morphine Allergy Intermediate Hives 08/02/17 Yes Physical Exam: PE: Constitutional: Well developed, well nourished, no acute distress, non-toxic appearance. [] HENT: Normocephalic, atraumatic, bilateral external ears normal, oropharynx moist, no oral exudates, nose normal. [] Eyes: PERRLA, EOMI, conjunctiva normal, no discharge. [] Neck: Normal range of motion, no tenderness, supple, no stridor. [] Cardiovascular:Heart rate regular rhythm, no murmur [] Lungs & Thorax: Bilateral breath sounds clear to auscultation [] Abdomen: Bowel sounds normal, soft, no tenderness, no masses, no pulsatile masses. [] Skin: Warm, dry, no erythema, no rash. [] Back: No tenderness, no CVA tenderness. [] Extremities: No tenderness, no cyanosis, no clubbing, ROM intact, no edema. [] Neurologic: Alert and oriented X 3, normal motor function, normal sensory function, no focal deficits noted. [] Psychologic: Affect normal, judgement normal, mood normal. [] Current Patient Data: Labs: Laboratory Tests Test 07/01/20 14:53 07/01/20 15:08 Urine Collection Type Unknown Urine Color Yellow Urine Clarity Clear Urine pH 5.5 (<5.0-8.0) Urine Specific Circle 1.015 (1.000-1.030) Urine Protein Negative mg/dL (NEG-TRACE) Urine Glucose (UA) Negative mg/dL (NEG) Urine Ketones (Stick) Negative mg/dL (NEG) Urine Blood Negative (NEG) Urine Nitrite Negative (NEG) Urine Bilirubin Negative (NEG) Urine Urobilinogen Dipstick 0.2 mg/dL (0.2 mg/dL) Urine Leukocyte Esterase Negative (NEG) Urine RBC 0 /HPF (0-2) Urine WBC 0 /HPF (0-4) Urine Squamous Epithelial Cells Mod /LPF Urine Amorphous Sediment Present /HPF Urine Bacteria Few /HPF (0-FEW) Urine Mucus Mod /LPF POC Urine HCG, Qualitative Hcg negative (Negative) Vital Signs: Vital Signs Date Time Temp Pulse Resp B/P (MAP) Pulse Ox O2 Delivery O2 Flow Rate FiO2 07/01/20 16:00 98.2 68 20 111/59 (76) Room Air 98.2 EKG: EKG: [] Radiology/Procedures: Radiology/Procedures: []REASON: flank pain PROCEDURE: CT ABDOMEN PELVIS WO CONTRAST EXAM: Abdomen and pelvis CT with intravenous contrast. HISTORY: Flank pain. TECHNIQUE: Computed tomographic images of the abdomen and pelvis were obtained following the administration of intravenous contrast. Multiplanar reformatting was performed. *One or more of the following individualized dose reduction techniques were utilized for this examination: 1. Automated exposure control. 2. Adjustment of the mA and/or kV according to patient size. 3. Use of iterative reconstruction technique. COMPARISON: None. FINDINGS: Evaluation of the lower thorax demonstrates mild lower lobe predominant air trapping. There is no pleural effusion or pneumothorax. There is no suspicious hepatic lesion. The gallbladder, pancreas, spleen and adrenal glands are unremarkable. The kidneys are unremarkable. There is no hydronephrosis. The bladder is nearly empty. There is no appendicitis. There is no bowel obstruction. There are fallopian tube closure devices in expected position. The aorta is normal in caliber. There is no lymphadenopathy. There is grade 1 anterolisthesis with bilateral pars interarticularis defects at L5-S1. IMPRESSION: 1. No acute abdominal or pelvic finding. 2. Grade 1 anterolisthesis with pars defects at L5-S1. Electronically signed by: Cristina Lang MD (07/01/2020 4:45 PM) [id number] DICTATED and SIGNED BY: CRISTINA LANG MD DATE: 07/01/20 [id number] 0 Course & Med Decision Making: Course & Med Decision Making Pertinent Labs and Imaging studies reviewed. (See chart for details) This is a 39-year-old female patient presenting to the ED today with left low back pain/flank pain, symptoms for 2 days. No known injury. Patient believes this pain is from a kidney stone. Urine negative for infection, negative for blood, CT of the abdomen and pelvis is negative. Discharge to home. Dragon Disclaimer: Dragon Disclaimer: This electronic medical record was generated, in whole or in part, using a voice recognition dictation system. Departure Departure Impression: Primary Impression: Low back pain Qualified Codes: M54.5 - Low back pain Disposition: HOME / SELF CARE / HOMELESS Condition: STABLE Referrals: KELSEY KIM MD (PCP) follow up next week Patient Instructions: Back Pain, Adult Additional Instructions: You were evaluated in the emergency room, your CAT scan and urine were negative for any acute findings. Your pain is likely muscle skeletal. Take the prescribed medications as ordered. Consider applying heat to your back. Scripts Naproxen (NAPROXEN) 500 Mg Tablet 1 TAB PO BID for pain, #20 TAB 0 Refills Prov: JOSE STAPLES [employer] 07/01/20 Cyclobenzaprine Hcl (CYCLOBENZAPRINE HCL) 10 Mg Tablet 1 TAB PO TID, #30 TAB Prov: JOSE STAPLES APRN 07/01/20 JOSE STAPLES APRN July 01, 2020 17:45
== END 2020-07-01 17:47 | disposition home or self-care (01) ==
LOC: ER 14:50
DX: M54.5 Low back pain (principal); J45.909 Unspecified asthma, uncomplicated; K21.9 Gastro-esophageal reflux disease without esophagitis; G43.909 Migraine, unspecified, not intractable, without status migrainosus; F17.200 Nicotine dependence, unspecified, uncomplicated; Z90.49 Acquired absence of other specified parts of digestive tract; Z88.5 Allergy status to narcotic agent
CPT/HCPCS: 74176; 81001; 81025; 99284-25

== ENCOUNTER 2021-03-29 22:47 | Emergency (ER) | payer OTHER ==
[~2021-03-29 22:47] MED LIST changes: +CYCL10TA19 PO; +NAPR-514 PO; -OMEP40CA45 PO; +OMEP40CA7 PO
== END 2021-03-30 00:51 | disposition left against medical advice (07) ==
LOC: ER 03-30 00:48
DX: N20.0 Calculus of kidney (principal); Z53.21 Procedure and treatment not carried out due to patient leaving prior to being seen by health care provider